=== PATIENT | male | born 1990 | race Caucasian/White ===

== ENCOUNTER 2016-07-26 22:01 | Emergency (ER) | payer OTHER ==
[~2016-07-26] VITALS: Ht 177.8 cm; Wt 68.0 kg
--- NOTE | 2016-07-26 22:08 | ED AMS/SEIZURE/WEAK/DIZZY ---
History of Present Illness General Chief Complaint: ETOH/Drug Related Complaint Stated Complaint: BIBA FOR UNRESPONSIVE/AMS Source: patient, EMS Exam Limitations: no limitations Vital Signs & Intake/Output Vital Signs & Intake/Output Vital Signs Date Time Temp Pulse Resp B/P B/P Pulse O2 O2 Flow FiO2 Mean Ox Delivery Rate 07/27 0436 97.4 65 18 107/59 98 Room Air 07/27 0031 98/58 07/27 0013 97.2 78 18 96/54 97 Nasal 2.0L Cannula 07/26 2316 97.0 64 18 116/69 97 Room Air 07/26 2228 97.6 67 10 125/78 96 Room Air Room Air ED Intake and Output 07/27 0000 07/26 1200 Intake Total Output Total Balance Patient 150 lb Weight Allergies Coded Allergies: No Known Allergies (07/27/16) Reconcile Medications Alprazolam (Xanax) 2 MG TABLET 1 TAB PO TIDPRN ANXIETY (Reported) Buprenorphine HCl/Naloxone HCl (Suboxone 12 MG-3 MG Sl Film) (Unknown Strength) FILM (Unknown Dose) MENTAL HEALTH (Reported) Triage Nurses Notes Reviewed? yes Onset: Abrupt Duration: JUST PRIOR TO ARRIVAL Injury Environment: street Severity: moderate, severe No Modifying Factors: none HPI: 26 year old male presents to the ER for chief complaint of ams from his car. Neighbors found him unresponsive. Admits to taking 2 xanax 2 mg at 11 am today. Admits to shooting up heroin at 5:30. EMS found him arousable. Patient states that he was not having harmed himself or anybody else. He states that he is under a lot of stress. He states he again pointed at him previously. He has a prescription for Suboxone which he states he cannot fill. Past History Travel History Traveled to [place] past 21 day No Medical History Any Pertinent Medical History? see below for history Psychiatric: substance abuse Surgical History Surgical History: non-contributory Family History Hx Contributory? No Review of Systems Review of Systems Constitutional: Denies: chills, fever. EENTM: Reports: no symptoms. Respiratory: Denies: short of breath. Cardiovascular: Denies: chest pain. GI: Denies: abdominal pain. Genitourinary: Reports: no symptoms. Musculoskeletal: Reports: no symptoms. Skin: Reports: no symptoms. Neurological/Psychological: Reports: confusion, emotional problems. Hematologic/Endocrine: Denies: bleeding. Immunologic/Allergic: Reports: no symptoms. All Other Systems: Reviewed and Negative Physical Exam Physical Exam General Appearance: mild distress, moderate distress, thin Head: atraumatic Eyes: Bilateral: other (PINPOINT PUPILS). Ears, Nose, Throat: normal pharynx, normal ENT inspection Neck: normal inspection, supple, full range of motion Respiratory: normal breath sounds, chest non-tender, no respiratory distress Cardiovascular: regular rate/rhythm Peripheral Pulses: 2+ radial (R), 2+ radial (L) Gastrointestinal: normal bowel sounds, soft, non-tender Extremities: normal range of motion Neurologic/Psych: no motor/sensory deficits Skin: intact, normal color, warm/dry Core Measures ACS in differential dx? No CVA/TIA Diagnosis: No Severe Sepsis Present: No Septic Shock Present: No Progress Differential Diagnosis: alcohol intoxication, POLYSUBSTANCE ABUSE Plan of Care: Orders Procedure Date/time Status URINE DRUGS OF ABUSE 07/26 2206 Complete Laboratory Tests 07/27/16 0145: Urine Opiates Screen > 4000.00 H, Methadone Screen 42, Barbiturate Screen < 60, Ur Phencyclidine Scrn < 6.00, Amphetamines Screen 116, U Benzodiazepines Scrn > 800 H, Urine Cocaine Screen > 1000 H, Urine Cannabis Screen > 80.00 H 4:58 AM REQUESTING TO LEAVE. BREATHALZED AT 0. AMBULATORY WITH [facility]. ([facility] [place]) Initial ED EKG: none Departure Departure Time of Disposition: 458 Disposition: HOME OR SELF CARE Condition: Stable Clinical Impression Primary Impression: Heroin overdose Secondary Impressions: Benzodiazepine abuse, Cannabis abuse, Cocaine abuse Additional Instructions: FOLLOW UP WITH THE LIST OF DETOX FACILITIES. Departure Forms: Customer Survey General Discharge Information
[2016-07-26] MEDS ORDERED: XANAX2 M1 PO (22:37)
[2016-07-26] MEDS ORDERED: SUBOXONE 12 MG1 EACH (22:39)
[2016-07-27 04:36] VITALS: BP 107/59
== END 2016-07-27 05:15 ==
LOC: ERH 22:01
DX: T40.1X1A Poisoning by heroin, accidental (unintentional), initial encounter (principal); F13.10 Sedative, hypnotic or anxiolytic abuse, uncomplicated; F12.10 Cannabis abuse, uncomplicated; F14.10 Cocaine abuse, uncomplicated
CPT/HCPCS: 80307; 96361; 96374; 96376; 99291; J2310

== ENCOUNTER 2016-07-28 11:56 | Emergency (ER) | payer OTHER ==
[~2016-07-28 11:56] MED LIST: SUBOXONE 12 MG1 EACH; XANAX2 M1 PO
--- NOTE | 2016-07-28 12:20 | ED GENERAL ADULT ---
History of Present Illness General Chief Complaint: ETOH/Drug Related Complaint Stated Complaint: BIBA FOR POLYSUB WITHDRAWAL, DC'ED BY [facility] Source: patient Exam Limitations: no limitations Vital Signs & Intake/Output Vital Signs & Intake/Output ED Intake and Output 07/29 0000 07/28 1200 Intake Total Output Total Balance Patient 190 lb Weight Weight Estimated Measurement Method Allergies Coded Allergies: No Known Allergies (07/27/16) Reconcile Medications Alprazolam (Xanax) 2 MG TABLET 1 TAB PO TIDPRN ANXIETY (Reported) Buprenorphine HCl/Naloxone HCl (Suboxone 12 MG-3 MG Sl Film) (Unknown Strength) FILM (Unknown Dose) MENTAL HEALTH (Reported) Triage Note: BIBA FOR XANAX WITHDRAWAL, LAST TOOK 2 DAYS AGO. PT HAD MEDS RETAINED BY PD AND UNABLE TO REFILL RX. ALSO USES HEROIN AND OTHER SUBSTANCES BUT IS EVASIVE OF ANSWERING QUESTIONS. WAS TREATED AT [facility] EARLIER AND STATES "I HAD A SEIZURE AND THEY KICKED ME OUT." ARRIVES SHAKING, ROCKING ON STRETCHER. DENIES SI/HI. SECURITY CALLED FOR WANDING. Triage Nurses Notes Reviewed? yes Onset: Abrupt Duration: day(s): Timing: recent history HPI: 07/28/16 1 PM 26-year-old man presents to the emergency department after being discharged from [facility] requesting Xanax. The patient states he been taking Xanax 4 times a day and for the past 48 hours he's been unable to get it, as it was confiscated by the police. I offered the patient assistance with drug rehabilitation. The patient declined. He insisted that he wanted to leave after he was informed that further evaluation needed to be determined, and that I could not immediately give him benzodiazepine or opiates. He was not homicidal or suicidal, he had insight into his situation. He was in the company of his sister. They were informed to follow up with the outpatient detox facilities. He refused to wait for the discharge instructions. Past History Travel History Traveled to [place] past 21 day No Medical History Any Pertinent Medical History? see below for history Psychiatric: substance abuse Surgical History Surgical History: non-contributory Psychosocial History What is your primary language Mexican Family History Hx Contributory? No Review of Systems Review of Systems Constitutional: Reports: no symptoms. EENTM: Reports: no symptoms. Respiratory: Reports: no symptoms. Cardiovascular: Denies: palpitations. Genitourinary: Reports: no symptoms. Musculoskeletal: Reports: muscle pain. Skin: Denies: rash. Neurological/Psychological: Reports: anxiety. Hematologic/Endocrine: Denies: bruising, bleeding. Physical Exam Physical Exam General Appearance: well developed/nourished, alert, awake, anxious, mild distress Head: atraumatic, normal appearance Eyes: Bilateral: normal appearance, PERRL, EOMI. Ears, Nose, Throat: normal pharynx, normal ENT inspection Neck: normal inspection, supple Respiratory: normal breath sounds, chest non-tender, no respiratory distress Cardiovascular: tachycardia Peripheral Pulses: 4+ radial (R), 4+ radial (L) Gastrointestinal: soft, non-tender Back: no vertebral tenderness Extremities: normal inspection, no edema Neurologic/Psych: no motor/sensory deficits, awake, alert, oriented x 3, normal gait Skin: intact, normal color, warm/dry Core Measures ACS in differential dx? No CVA/TIA Diagnosis: No Severe Sepsis Present: No Septic Shock Present: No Progress Differential Diagnoses I considered the following diagnoses in my evaluation of the patient: [Opiate withdrawal, benzodiazepine withdrawal, substance abuse, rhabdomyolysis, dehydration, alcohol withdrawal] Plan of Care: Orders Procedure Date/time Status URINE DRUGS OF ABUSE 07/28 1215 Complete URINALYSIS 07/28 1215 Complete Laboratory Tests 07/28/16 1215: Urine Opiates Screen > 4000.00 H, Methadone Screen < 40, Barbiturate Screen < 60, Ur Phencyclidine Scrn < 6.00, Amphetamines Screen 106, U Benzodiazepines Scrn > 800 H, Urine Cocaine Screen > 1000 H, Urine Cannabis Screen 60.60 H, Urine Color YEL, Urine Clarity CLEAR, Urine pH 6.5, Ur Specific [place] 1.020, Urine Protein NEG, Urine Ketones NEG, Urine Nitrite NEG, Urine Bilirubin NEG, Urine Urobilinogen 0.2, Ur Leukocyte Esterase NEG, Ur Microscopic EXAM NOT REQUIRED, Urine Hemoglobin NEG, Urine Glucose NEG Initial ED EKG: none Departure Departure Disposition: STILL A PATIENT Condition: Stable Clinical Impression Primary Impression: Substance abuse Referrals: PATIENT HAS NO PRIMARY CARE DR (PCP/Family) Departure Forms: Customer Survey General Discharge Information Comments The patient's urinalysis was negative. Urine toxicology revealed cocaine, benzodiazepines, opiates, and cannabis. The patient refused to stay for assistance with drug rehabilitation. He declined blood work or IV fluids or further evaluation. After discussion that I could not immediately given Xanax. He insisted upon leaving. He was awake alert oriented 3 he was ambulating without assistance. He was urged to follow up with outpatient substance abuse centers. Critical Care Note Critical Care Note Critical Care Time: non-applicable
[2016-07-28 12:33] VITALS: BP 130/70
== END 2016-07-28 13:21 ==
LOC: ERH 11:56
DX: F13.10 Sedative, hypnotic or anxiolytic abuse, uncomplicated (principal)
CPT/HCPCS: 80307; 81003